=== PATIENT | female | born 1980 | race American Indian/Alaskan Native ===

== ENCOUNTER 2016-09-29 12:58 | Outpatient (CLI) | payer MEDICAID ==
--- NOTE | 2016-10-03 08:13 | Mammography Report ---
BILATERAL DIGITAL DIAGNOSTIC MAMMOGRAM WITH CAD AND TARGETED LEFT BREAST ULTRASOUND. HISTORY: Bilateral mastodynia. No prior studies are available for comparison. The patient is 36 years old. FINDINGS: There is heterogeneous density of the fibroglandular tissue. A few scattered round monomorphic microcalcifications are seen bilaterally, but no suspicious groups or clusters are seen. In the posterior left breast at 12:00, there is a round low density parenchymal asymmetry which measures 8 mm in diameter. This finding persists on spot compression images. There is no architectural distortion. Targeted ultrasound at the 12:00 position demonstrates an ovoid shaped hypoechoic lesion, 9 cm from the nipple measuring 7 x 3 x 5 mm. There is no acoustic shadowing or other suspicious features This correlates with the size and location of the mammographic density. In addition, there are two additional ovoid hypoechoic lesions at 3:00, the larger measuring 9 x 3 x 10 mm. This is sharply circumscribed and has homogeneous internal echotexture. Also at the 3:00 position is an ovoid shaped hypoechoic lesion measuring 5 x 2 x 4 mm. Again, no acoustic shadowing or other suspicious features are seen. IMPRESSION: 1. 8 mm lesion at the 12:00 position in the posterior left breast demonstrates benign mammographic and sonographic features. 2. Two additional benign hypoechoic lesions are seen at the 3:00 position of the left breast. BI-RADS CATEGORY: 3 = Probably benign ACR BI-RADS MAMMOGRAPHIC CODES: 0 = Needs additional imaging evaluation; 1 = Negative; 2 = Benign; 3 = Probably benign; 4 = Suspicious; 5 = Malignant; 6 = Known biopsy-proven malignancy COMMENT: 1. Dense breast tissue, i.e., adenosis, fibrocystic changes, etc., may obscure an underlying neoplasm. 2. Approximately 10% of cancers are not detected with mammography. 3. A negative mammography report should not delay biopsy if a clinically suspicious mass is present. RECOMMENDATION: A followup left breast ultrasound is recommended in 6 months to confirm stability of these findings. COMMENT: Patient follow-up letters are generated by [employer].
== END 2016-09-29 12:59 | disposition home or self-care (01) ==
LOC: MAMMO 12:58
PROVIDERS: ATTEND Obstetrics & Gynecology Gynecology
DX: N64.4 Mastodynia (principal)
CPT/HCPCS: 76642; G0204; 77066